=== PATIENT | male | born 1985 | race African-American/Black ===

== ENCOUNTER 2016-07-18 13:25 | Emergency (ER) | payer OTHER ==
[~2016-07-18] VITALS: Ht 180.3 cm; Wt 82.6 kg
[2016-07-18] MEDS ORDERED: SYMBICORT80 MCG/4.5 INH (13:32)
[2016-07-18] MEDS ORDERED: DESCOVY 200-251 EACH PO (13:32)
[2016-07-18] MEDS ORDERED: ACCUNEB SO1.25 MG/1 INH (13:33)
[2016-07-18] MEDS ORDERED: METFORMIN HCL500 MG PO (13:33)
[2016-07-18] MEDS ORDERED: TIVICAY10 MG PO (13:33)
[2016-07-18] MEDS ORDERED: APIDRA SOL100 UNIT/1 SQ (13:34)
[2016-07-18] MEDS ORDERED: TOUJEO SOL300 UNIT/1 SQ (13:34)
[2016-07-18] MEDS ORDERED: LAMICTAL100 MG PO (13:35)
[2016-07-18] MEDS ORDERED: CEPACOL SORE T1 EAC7 MM (15:30)
[2016-07-18] MEDS ORDERED: TESSALON PERLE100 MG PO (15:30)
[2016-07-18 16:01] VITALS: BP 117/81
== END 2016-07-18 16:01 | disposition home or self-care (01) ==
LOC: ER 13:25
DX: J02.8 Acute pharyngitis due to other specified organisms (principal); J06.9 Acute upper respiratory infection, unspecified; J45.909 Unspecified asthma, uncomplicated; E10.9 Type 1 diabetes mellitus without complications; Z21 Asymptomatic human immunodeficiency virus [HIV] infection status